=== PATIENT | male | born 1965 | race Caucasian/White ===

== ENCOUNTER 2021-09-04 08:19 | Observation (INO) ==
--- NOTE | 2021-08-08 16:30 | PAT Medication Instructions ---
Medication Instructions Date of Service August 08, 2021 Home Medications Medical Marijuana Card 1 dose UD PRN amlodipine 10 mg tablet 10 mg PO DAILY atorvastatin 40 mg tablet 40 mg PO QAM chlorthalidone 25 mg tablet 25 mg PO QAM cholecalciferol (vitamin D3) 125 mcg (5,000 unit) tablet (Vitamin D3) 125 mcg PO QAM gabapentin 300 mg capsule 300 mg PO TID glimepiride 2 mg tablet 2 mg PO QAM lisinopril 40 mg tablet 40 mg PO QAM ropinirole 1 mg tablet 1 mg PO HS Continue as directed amlodipine 10 mg tablet 10 mg PO DAILY STOP taking 24 hours before surgery Medical Marijuana Card 1 dose UD PRN DO NOT take the morning of surgery chlorthalidone 25 mg tablet 25 mg PO QAM cholecalciferol (vitamin D3) 125 mcg (5,000 unit) tablet (Vitamin D3) 125 mcg PO QAM glimepiride 2 mg tablet 2 mg PO QAM lisinopril 40 mg tablet 40 mg PO QAM Take morning of surgery With a small sip of water, OTHERWISE NOTHING TO EAT OR DRINK AFTER MIDNIGHT: atorvastatin 40 mg tablet 40 mg PO QAM gabapentin 300 mg capsule 300 mg PO TID Take evening before surgery gabapentin 300 mg capsule 300 mg PO TID ropinirole 1 mg tablet 1 mg PO HS Other Notes If you have any questions please call us at [phone] or [phone] or [phone] or [phone]
--- NOTE | 2021-08-15 11:39 | Anesthesiology Consultation ---
Date of Service August 15, 2021 Assessment & Plan (1) Encounter for pre-operative examination: - check BSG am DOS. - Outpatient joint pathway: Per surgeon and patient, plan for outpatient joint program. Case discussed with Dr. Canales who agreed patient is not appropriate outpatient joint candidate for multiple reasons even if had adequate, strong home support. Nery at surgeon's office made aware. - COVID screening: Per assessment on 08/15/2021: Travel screen negative, no known COVID-19 positive contacts or current COVID-19 related symptoms in past 2 weeks. Surgeon arranging preop COVID testing, scheduled 08/31/2021. Awaiting results. Chart Review Chart Review: Acceptable Risk for Surgery and Patient seen in Pre Admission Testing Teaching & Discussion Pre-Anesthesia Teaching/Discussion Notes: Instructed NPO after midnight before surgery, except medications with 15 cc of water. Medication instructions provided according to the PAT guidelines. History Surgery Operation Date: 09/04/21 07:00 Proposed Procedures p OP: Left Reverse Total Shoulder Arthroplasty - Zurdo Rainey DO Height/Weight Height: 6 ft 3 in Weight: 154.8 kg Allergies Allergy/AdvReac Type Severity Reaction Status Date / Time No Known Allergies Allergy Verified 08/07/21 13:09 Medications Home Medications Medication Instructions Recorded Confirmed Last Taken Medical Marijuana Card 1 dose UD PRN 08/07/21 08/07/21 Unknown amlodipine 10 mg tablet 10 mg PO DAILY 08/07/21 08/07/21 Unknown atorvastatin 40 mg tablet 40 mg PO QAM 08/07/21 08/07/21 Unknown chlorthalidone 25 mg tablet 25 mg PO QAM 08/07/21 08/07/21 Unknown cholecalciferol (vitamin D3) 125 125 mcg PO QAM 08/07/21 08/07/21 Unknown mcg (5,000 unit) tablet (Vitamin D3) gabapentin 300 mg capsule 300 mg PO TID 08/07/21 08/07/21 Unknown glimepiride 2 mg tablet 2 mg PO QAM 08/07/21 08/07/21 Unknown lisinopril 40 mg tablet 40 mg PO QAM 08/07/21 08/07/21 Unknown ropinirole 1 mg tablet 1 mg PO HS 08/07/21 08/07/21 Unknown Past Medical History Medical History (Updated 08/15/21 @ 15:22 by Sue Hart PA-C) Anxiety and depression Arthritis of spine Herniated disc High cholesterol History of colonic polyps BENIGN History of stroke 7 YR AGO...RESIDUAL: MILD LEFT SIDE WEAKNESS, MAINLY LEG HTN (hypertension) Lumbar herniated disc Neuropathy "FALL RISK" PER PT RLS (restless legs syndrome) Sleep apnea NO MACHINE USE FOR >1 YR Type 2 diabetes mellitus NIDDM Patient denies h/o seizures, heart attack, heart failure, blood clots or blood transfusions. Exercise / Class Metabolic Activity III < 4 Walking/Shop/Light housework (denies CP or SOB) Past Family History Family History Grandmother Family history of diabetes mellitus Grandfather Family history of diabetes mellitus Brother Family history of diabetes mellitus Past Surgical History Surgical History History of ankle surgery LEFT History of colonoscopy History of rotator cuff surgery R&L (LEFT ROTATOR CUFF SX OCTOBER 27 2020) History of total left knee replacement History of total right knee replacement Past Anesthesia History No Hx of Anesthesia Complications History of PONV No Hx of PONV and No Hx of Motion Sickness Social History Smoking Status: Current some day smoker Smoking cigarettes per day: "BLACK AND MILD" - SPORADIC, A COUPLE DAYS A MONTH/ADVISED NPO Do You Dip or Chew Tobacco: No Hx Alcohol Use: Yes alcohol intake frequency: other Alcohol Intake Frequency Comment: LIMITED , A COUPLE TIMES A YEAR substance use type: other Substance Use Type Other:: MEDICAL MARIJUANA CARD - INSTRUCTED TO BRING CARD DOS Review of Systems Patient denies chest pain, shortness of breath, dyspnea on exertion, reflux, fever, chills, cough, wheezing, or palpitations. Physical Exam Vital Signs Vitals BP 159/86 (states has not yet taken antihypertensives today) P 55 TEMP 98.5 SP02 98% on RA RESP 17 Physical Full cervical extension range of motion without pain TMD 3.5 finger breaths Mallampati Score 3 Dentition: intact, several missing teeth-upper left back and lower left back; denies chipped or loose teeth, caps/crowns, implants or bridges Lungs: normal respiratory effort. Clear throughout to auscultation, no adventit ious breath sounds Cardiac: regular rate and rhythm, no murmurs noted Carotid arteries: negative bruit bilat Lab Results Anesthesia Preop Results Results Anesthesia Widget: WBC 6.07 K/uL (4.8-10.8) 08/15/21 Hgb 15.5 g/dL (14.0-18.0) 08/15/21 Hct 44.6 % (42-52) 08/15/21 Plt 174 K/uL (130-400) 08/15/21 Na 140 mmol/L (136-145) 08/15/21 K 3.4 mmol/L (3.5-5.1) L 08/15/21 Cl 106 mmol/L (98-107) 08/15/21 CO2 29 mmol/L (21-32) 08/15/21 BUN 10 mg/dl (6-23) 08/15/21 Creat 0.84 mg/dl (0.6-1.4) 08/15/21 Glucose Level 81 mg/dl (70-99(Fasting)) 08/15/21 PT 10.2 Seconds (9.0-12.0) 08/15/21 PTT 25.9 Seconds (21.0-31.0) 08/15/21 INR 1.0 (0.9-1.1) 08/15/21 Blood Type A Positive 08/15/21 Antibody Screen NEGATIVE 08/15/21 Testing Electrocardiogram Date: 10/18/20 NSR, rate 66 bpm Chest X-Ray Date: 08/15/21 The cardiomediastinal and hilar silhouettes are within normal limits. Mild hyperinflation. There is no pneumothorax, pleural effusion, airspace consolidation or overt pulmonary edema. Degenerative changes of the shoulders and spine. IMPRESSION: No acute process.
[~2021-09-04 08:19] MED LIST: ACETAMINOPHEN 500 MG TAB PO SCH; BUPIVACAINE 0.5 % 5 MG/1 ML PF 10ML VIAL ONE; FAMOTIDINE 20 MG TAB PO SCH; GABAPENTIN 300 MG CAP PO SCH; Ketorolac (*for OR use only*) 30 MG, dexAMETHasone 4 MG, KETAMINE HCL (**OR use only) 1... INFIL SCH; LACTATED RINGER'S 1,000 ML IV SCH; LR 60ML/HR IV SCH; TRANEXAMIC ACID 1,000 MG **IV Intra-op IV SCH; TRANEXAMIC ACID 1,000 MG **IV Pre-op IV SCH; dexAMETHasone 4 MG TAB PO SCH
[2021-09-04] MEDS ORDERED: MIDAZOLAM HCL 1 MG/ML 2ML VIAL ONE (09:16)
[2021-09-04] MEDS ORDERED: fentaNYL citrate 100 MCG/2 ML VIAL ONE ×2 (09:16→11:12)
[2021-09-04] MEDS ORDERED: fentaNYL citrate 100 MCG/2 ML VIAL IV PRN (09:28)
[2021-09-04] MEDS ORDERED: KETOROLAC 30 MG/ML VIAL IV PRN (09:28)
[2021-09-04] MEDS ORDERED: ONDANSETRON INJ 2 MG/ML 2 ML VIAL IV PRN ×2 (09:28→13:17)
[2021-09-04] MEDS ORDERED: ATROPINE SULFATE 0.1 MG/ML 10ML SYR IV PRN (09:28)
[2021-09-04] MEDS ORDERED: LABETALOL HCL IV 5 MG/ML 20ML IV PRN (09:28)
--- NOTE | 2021-09-04 10:05 | History & Physical Bridge Note ---
Date of Service September 04, 2021 History & Physical Bridge Note I have examined the patient, reviewed the History & Physical and in the interval since the performance of the History & Physical I have noted the following changes of clinical significance: no changes noted
[2021-09-04] MEDS ORDERED: ORTHO JOINT ANESTHETIC ONE (10:22)
--- NOTE | 2021-09-04 12:00 | Operative Report ---
PG Post Operative Report Pre & Post Diagnosis Operation Date: 09/04/21 10:40 Pre-Op Diagnosis: Rotator Cuff Arthropathy of Left Shoulder with tendinopathy long head of the biceps tendon Post-Op Diagnosis: Rotator Cuff Arthropathy of Left Shoulder with tendinopathy long head of the biceps tendon I identified the patient and participated in the time-out.: Yes Procedure Operation Date: 09/04/21 10:40 Actual Procedures p Left Reverse Total Shoulder Arthroplasty(Left) with open biceps tenodesis as a distinct and separate procedure (modifier 59)- Zurdo Rainey DO Surgeon Zurdo Rainey DO Full Stack Engineer Zurdo Villanueva PAC Estimated Blood Loss 250 Findings Consistent with Post-Op Diagnosis Specimens Left humeral head Complications none Disposition Disposition: Recovery Room Indications Cory is a pleasant 56-year-old male who has been dealing with increasing left shoulder pain and weakness. He has a failed rotator cuff repair in the past. MRI showed an unrepairable rotator cuff tear. After discussions in the office, he elected proceed with a left reverse shoulder arthroplasty. Description of Procedure A CPT code modifier 59: The long head of the biceps tendon was enlarged and infl frieda consistent with tendinopathy. A tenodesis was opted. This was a separate and distinct portion of the procedure. For these reasons, a CPT code modifier 59 will be added to this case. Implants used: I used a [employer]omet Comprehensive reverse total shoulder arthroplasty system with a size 11 press fit micro humeral stem, a standard humeral tray and a standard humeral bearing, a 25 mm small augment baseplate with a 6.5 mm central screw and superior and inferior locking screws, and a size 40 mm eccentric glenosphere. Cory arrived at [facility] for the above procedure. He was seen in the preoperative holding area and the operative extremity was identified and signed. He was given a preoperative antibiotic, TXA, and an interscalene nerve block. He was taken back to the operating room, laid on table in supine position, and put under general anesthesia. He was then put into the beachchair position. The shoulder was then prepped and draped in sterile fashion. A timeout was done and the patient and the operative extremity was properly identified. A deltopectoral approach was used. Dissection was taken down through the fascia and the deltoid was retracted laterally and the conjoined tendon was retracted medially. The anterior shoulder was exposed. The biceps groove was opened up and the biceps tendon was examined extensively. The biceps tendon demonstrated enlargement and inflammatory changes consistent with longstanding inflammation in the context of osteoarthritis and cuff arthropathy. The long head of the biceps tendon was then tenodesed to the upper border of the pectoralis major. This was a separate and distinct portion of the procedure. The subscapularis was then directly released off the lesser tuberosity with a peel technique. The inferior capsule was released and the humeral head was dislocated. A canal finding reamer was sent down the center of the humeral canal. Sequential reaming up to a size 11 reamer was done. Off that reamer, a proximal humeral resection guide was placed. The proximal humerus was resected at 135 of inclination and 25 of retroversion. Osteophytes were then removed and the glenoid was exposed. Time was spent doing a complete capsular and labral release. The glenoid guide was then placed in the inferior aspect of the glenoid. A 3.2 mm Steinmann pin was then placed into the glenoid vault at 10 of inclination. The glenoid baseplate was then reamed. The final size 25 mm small augment baseplate was then impacted in the place. A 6.5 mm central screw was then placed followed by superior and inferior locking screws. A 40 mm eccentric glenosphere was then impacted into place. Surrounding soft tissues were then injected with 100 cc an orthopedic pain control cocktail. The proximal humerus was then exposed. Sequential broaching of the humerus up to a size 11 broach was done. Off that broach a standard humeral tray was trialed. The shoulder was then reduced, brought through a full range of motion, and felt to be stable. The shoulder was then dislocated and the broach was removed. The final size 11 micro press-fit humeral stem was then impacted into place. A standard humeral bearing was then snapped onto a standard humeral tray. The humeral tray was then impacted onto the humeral stem. The shoulder was once again reduced, brought through a full range of motion, and felt to be stable. The subscapularis was then tenodesed back to the lesser tuberosity with transosseous FiberWire sutures and side to side sutures with the arm in 45 of external rot ation. A dilute betadyne lavage was then done for 3 minutes. The joint was then irrigated with normal saline solution. Hemostasis was obtained. The interval was closed with 2-0 Vicryl suture. The skin was then closed with 2-0 Vicryl and she. A Silverlon dressing was placed and the arm was rested in a regular arm sling. He was then extubated and transferred to a hospital bed. He taken to the postanesthesia care unit in stable condition. He tolerated the procedure well. Zurdo Villanueva PA-C, was present for the entire procedure. He was critical for patient positioning, prepping, draping, retraction exposure, wound closure and application of sterile dressing. I attest to the content of the Intraoperative Record and any orders documented therein. Any exceptions are noted below.
[2021-09-04] MEDS ORDERED: LIDOCAINE 2% 2 ML VIAL/AMP(20MG/ML) INFIL ONE (12:50)
[2021-09-04] MEDS ORDERED: ONDANSETRON INJ 2 MG/ML 2 ML VIAL ONE (12:50)
[2021-09-04] MEDS ORDERED: PROPOFOL IV EMULSION 10 MG/ML 20 ML VIAL IV ONE ×3 (12:50)
[2021-09-04] MEDS ORDERED: DEXAMETHASONE SOD INJ 4 MG/ML VIAL ONE (12:50)
--- NOTE | 2021-09-04 13:04 | XRay Report ---
XR shoulder LT min 2V routine CLINICAL HISTORY: Post shoulder surgery COMPARISON STUDY: None. FINDINGS: 3 images of the left shoulder demonstrate a reverse total shoulder arthroplasty. The hardwa re is intact. No fracture or dislocation. Skin she are in place. Soft tissue gas within the left shoulder consistent with the recent postoperative change. IMPRESSION: Status post reverse left total shoulder arthroplasty. No evidence for hardware complicat ion. ACT 112: Negative or not required by law. Electronically signed by: Usman Krishnan M.D. 09/04/2021 1:03 PM
[2021-09-04] MEDS ORDERED: HYDROmorphone INJ 0.5 MG/0.5 ML SYR IV PRN (13:17)
[2021-09-04] MEDS ORDERED: PHARMACY GLYCEMIC MGMT CONSULT PRN (13:17)
[2021-09-04] MEDS ORDERED: NALOXONE HCL 0.4 MG/1 ML VIAL/CARP IV PRN (13:17)
[2021-09-04] MEDS ORDERED: bisacodyL 10 MG SUPP PR PRN (13:17)
[2021-09-04] MEDS ORDERED: MAGNESIUM HYDROXIDE SUSP 30 ML UDC PO PRN (13:17)
[2021-09-04] MEDS ORDERED: METOCLOPRAMIDE HCL INJ 5 MG/ML 2 ML VIAL IV PRN (13:17)
--- NOTE | 2021-09-04 13:40 | Anesthesiology Progress Note ---
Date of Service September 04, 2021 Anesthesia Post Procedure Vital Signs Vital Signs: Temp Pulse Pulse Pulse Resp BP Pulse Ox 09/04/21 13:10 36.7 C 59 L 18 138/82 93 09/04/21 12:55 36.4 C L 65 13 125/89 93 09/04/21 12:45 56 L 15 128/84 94 09/04/21 12:35 61 16 145/80 H 99 09/04/21 12:25 68 14 147/80 H 100 09/04/21 12:15 58 L 12 146/79 H 100 09/04/21 12:09 36.3 C L 72 10 L 165/106 H 99 09/04/21 09:05 36.8 C 58 L 20 179/97 H 98 Pain Intensity Left Shoulder: Pain Intensity: 2 Transfer of Care Handoff Completed per policy Notes Mental Status: alert / awake / arousable Patient Amnestic to Procedure: Yes Nausea / Vomiting: adequately controlled Pain: adequately controlled Airway Patency, RR, SpO2: stable & adequate BP & HR: stable & adequate Hydration State: stable & adequate Anesthetic Complications: no major complications apparent
[2021-09-04] MEDS ORDERED: DEXTROSE 50% 50 ML SYRINGE IV PRN (14:00)
[2021-09-04] MEDS ORDERED: GLUCOSE 10 TABS/TUBE PO PRN (14:00)
[2021-09-04] MEDS ORDERED: GLUCAGON FOR INJ 1 MG VIAL IM PRN (14:00)
[2021-09-04] MEDS ORDERED: CARBOHYDRATES FOR HYPOGLYCEMIA PO PRN (14:00)
[2021-09-04] MEDS ORDERED: GLUCOSE 40% GEL 15 GM TUBE PO PRN (14:00)
--- NOTE | 2021-09-04 14:02 | Pharmacy Report ---
Pharmacy Glycemic Short Note 2 - Date of Service September 04, 2021 - Glycemic Short BSG Results (Last 24 hours): 09/04/21 09/04/21 09:10 12:12 POC Glucose 133 H 147 H OUTPATIENT ANTIDIABETIC REGIMEN: * Glimepiride 2 mg qAM * A1c pending ASSESSMENT: * Pt admitted following left shoulder arthroplasty. * Pre/post BSGS 133-147 mg/dL, patient did receive 8 mg of dexamethasone PO and ?4 mg IV intraop * Will start novolog with parameters based on adjusted body weight, correction factor of 20 and carb ratio 6 (pt insulin naive) * Will add a dose of NPH if BSGs start to elevate with dinner * Overnight checks PLAN FOR INPATIENT GLYCEMIC CONTROL: * Hold outpatient oral diabetes medications * Basal insulin * NPH 0/20 x1 * Bolus insulin * NovoLog per scale ACHS or Q6hrs while NPO * Goal Range: Low 110 mg/dL - High 140 mg/dL * Correction Factor: 20 mg/dL/unit * Nutritional / Prandial insulin per carb ratio of 1 unit per 6 grams CHO consumed
[2021-09-04] MEDS: INSULIN ASPART PER UNIT SC SCH ×4 (15:21→23:45)
[2021-09-04] MEDS: GABAPENTIN 300 MG CAP PO SCH ×2 (15:50→20:32)
[2021-09-04] MEDS: SODIUM CHLORIDE 0.9% 1000ML 1,000 ML IV SCH (15:50)
[2021-09-04] MEDS: oxyCODONE HCL IR 5 MG TAB (IMMEDIATE RELEASE) PO PRN ×2 (15:57→20:32)
[2021-09-04] MEDS ORDERED: INSULIN HUMAN NPH SC ONE (16:30)
[2021-09-04] MEDS: ACETAMINOPHEN 500 MG TAB PO SCH (17:12)
[2021-09-04] MEDS: KETOROLAC 30 MG/ML VIAL IV SCH ×2 (17:13→23:33)
[2021-09-04] MEDS ORDERED: NovoLIN-N (NPH) PER UNIT CHARGE SQ ONE (17:30)
[2021-09-04] MEDS: ceFAZolin 2000MG 2,000 MG/15 ML SYR IV SCH (18:37)
[2021-09-04] MEDS: DOCUSATE SODIUM 100 MG CAP PO SCH (20:31)
[2021-09-04] MEDS ORDERED: SENNA 8.6 MG TAB PO SCH (21:00)
[2021-09-05] MEDS: SODIUM CHLORIDE 0.9% 1000ML 1,000 ML IV SCH (01:23)
[2021-09-05] MEDS: ceFAZolin 2000MG 2,000 MG/15 ML SYR IV SCH (03:07)
[2021-09-05] MEDS: INSULIN ASPART PER UNIT SC SCH ×2 (04:05→08:22)
[2021-09-05] MEDS: oxyCODONE HCL IR 5 MG TAB (IMMEDIATE RELEASE) PO PRN (04:53)
[2021-09-05] MEDS: ACETAMINOPHEN 500 MG TAB PO SCH (05:58)
[2021-09-05] MEDS: KETOROLAC 30 MG/ML VIAL IV SCH (05:58)
--- NOTE | 2021-09-05 06:25 | Orthopedic Progress Note ---
Date of Service September 05, 2021 Assessment & Plan (1) Status post reverse total replacement of left shoulder: Overall he is doing very well. Is not having much pain in the left shoulder. He will be seen by physical therapy today for ambulation and range of motion exercises. He can be discharged home later today. He will follow-up with orthopedics in 2 weeks. Mimi Morejon was seen and examined at bedside this morning. Overall he is doing well. He is not having any pain in the left shoulder. He had no acute events overnight. Review of Systems All systems reviewed & are unremarkable except as noted in HPI & below. Physical Exam On physical examination of the left shoulder, the dressing is clean and dry. He has active dorsiflexion of his left wrist. He is wearing his sling as instructed. Results & Data Results & Data Laboratory Results . Diagnostic Findings . PG Care Time/CCT Total # of Minutes Spent Total Time Spent with Patient: Total time spent is greater than 50% in coordination of care (as documented) at patient's floor/unit and/or counseling patient: Coding Level of Care Code 76451 Post Operative Follow-Up Diagnoses Status post reverse total replacement of left shoulder Z96.612
--- NOTE | 2021-09-05 06:26 | Discharge Summary ---
Date of Service September 05, 2021 Principal Diagnosis Same as "Discharge Diagnosis" noted below under Discharge Instructions. Discharge Exam On physical examination of the left shoulder, the dressing is clean and dry. He has active dorsiflexion of his left wrist. He is wearing his sling as instructed. Discharge Data Procedures Performed Operation Date: 09/04/21 10:40 Actual Procedures p Left Reverse Total Shoulder Arthroplasty(Left) - Zurdo Rainey DO Ordered Studies 09/04/21 05:00 US - OR guided needle placemen Routine Hospital Course (1) Status post reverse total replacement of left shoulder: On September 04, 2021 Jean-Pierre arrived at [facility] and underwent a left reverse shoulder replacement without complication. He had a general anesthetic and a left interscalene nerve block. Postoperatively he was placed in a sling and transferred to the general orthopedic floors. His hospital course was uneventful. On postop day #1 his vital signs were stable and his pain was well controlled. He was able to participate well with physical therapy doing ambulation and range of motion exercises. He was then discharged home. He will follow-up with orthopedics in 2 weeks. PG Care Time/CCT Total # of Minutes Spent Total Time Spent with Patient: Total time spent is greater than 50% in coordination of care (as documented) at patient's floor/unit and/or counseling patient: Discharge Plan Discharge Items Patient Disposition: Home - Home Health Services Reason For Visit: Degenerative Joint Disease Left Shoulder, Rotator Discharge Diagnosis: Left reverse shoulder replacement Activity: As commented below Non-emergency contact: Surgeon Call non-emergency contact if: your wound has increased redness and your wound has increased drainage Follow-up/Referrals: Barry Taylor DO [Primary Care Provider] - Diet: Regular Addtl Attending Provider Instructions: Activity and Therapy Recommendations: * If you are using [facility] then therapy will be provided at your home until they feel you have accomplished all of your goals. * If you are using [facility] then Physical Therapy will be provided until they feel you are ready to start Outpatient Physical Therapy. * If you are not using home therapy then Outpatient Physical Therapy should start about 3-5 days from your day of surgery. Therapy will last about 8-12 weeks * Wear your sling for 3 weeks, unless otherwise instructed. You may remove your sling to shower and to dress, but otherwise, you should be in your sling at all times, including while sleeping * The shoulder replacement is very stable and you can use your hand while in the sling * You were shown a series of exercises in the hospital. Do these exercises daily including the exercises you were shown in physical therapy. Medications: * Narcotic You will likely be sent home from the hospital with a prescription for the narcotic pain medication that worked best throughout your stay. * Other medications may be prescribed for specific circumstances. If you have any questions, please call the office at . * Resume previous home medications unless otherwise instructed Dressing Care: Leave the Silverlon dressing in place for 7 days. After 7 days you may remove the dressing. If the incision is not draining then you may leave the she open to air. If there is a little bit of drainage or if the she are getting stuck on your clothing then cover the incision with a dry dressing. The she will be removed at your 2 week follow-up appointment. Showering: You may shower with the Silverlon dressing in place. Do not let the shower spray hit the dressing directly. Pat the Silverlon dressing dry. If the dressing becomes wet underneath, then simply remove the dressing. Keep the incision dry until you are 7 days out from the day of surgery. After 7 days you may remove the Silverlon dressing and shower with the she exposed. Let soapy water run over the she and pat them dry. Do not scrub or soak the incision. Things To Watch For: * Drainage from the incision site that occurs more than one week after your surgery. * Increased redness at the incision site. * Fever above 102 degrees Fahrenheit. * Unusual chest pain or shortness of breath. * Call [facility] at with any of the above problems Follow-Up Visit: Follow-up with Dr. Rainey's PA (Zurdo Villanueva) 2-3 weeks after your day of surgery. He will remove your she and answer any questions. If you have any additional questions or concerns, Dr Rainey is usually in the office at the same time and will be available An appointment was probably scheduled when you signed-up for surgery in the office. If you have any questions call More detailed instructions as well as Frequently Asked Questions were provided in a folder by our office when you signed-up for surgery. Please review these instructions when you get home. If you have any further questions or concerns, please feel free to call the office at [phone] Pending Studies at Discharge: No Stand-Alone Forms: My [facility] Medications and DC Order Prescriptions: Continued oxycodone-acetaminophen [Percocet] 5-325 mg tablet 1 tab PO Q6H PRN (Reason: pain) Qty: 30 RF: 0 atorvastatin 40 mg Tablet 40 mg PO QAM RF: 0 chlorthalidone 25 mg Tablet 25 mg PO QAM RF: 0 glimepiride 2 mg Tablet 2 mg PO QAM RF: 0 amlodipine 10 mg Tablet 10 mg PO DAILY RF: 0 gabapentin 300 mg Capsule 300 mg PO TID RF: 0 lisinopril 40 mg Tablet 40 mg PO QAM RF: 0 cholecalciferol (vitamin D3) [Vitamin D3] 125 mcg (5,000 unit) Tablet 125 mcg PO QAM RF: 0 Medical Marijuana Card 1 dose UD PRN (Reason: Anxiety) RF: 0 Discharge Orders: Discharge Order (Routine); Ordered 09/05/21 Ordered By: Zurdo Rainey Admission Data Admit Date/Time: 09/04/21 13:12 Attending Provider: Zurdo Rainey Admit Provider: Zurdo Rainey Primary Care Provider: Barry Taylor
[2021-09-05] MEDS: DOCUSATE SODIUM 100 MG CAP PO SCH (08:11)
[2021-09-05] MEDS: GABAPENTIN 300 MG CAP PO SCH (08:12)
[2021-09-05 08:37] LABS: Estimated Average Glucose 114 mg/dl; Hemoglobin A1C 5.6 % (4.5-5.6)
[2021-09-05] MEDS ORDERED: MULTIVITAMIN TAB PO SCH (09:00)
[2021-09-05] MEDS ORDERED: lisinopril 40 MG TAB PO SCH (09:00)
[2021-09-05] MEDS ORDERED: CHLORTHALIDONE 25 MG TAB PO SCH (09:00)
[2021-09-05] MEDS ORDERED: ATORVASTATIN 40 MG TAB PO SCH (09:00)
[2021-09-05] MEDS ORDERED: amLODIPine BESYLATE 5 MG TAB PO SCH (09:00)
== END 2021-09-05 10:07 | disposition home health service (06) ==
LOC: 3E 08:19 → ASU 08:19

== ENCOUNTER 2024-06-01 07:52 | Observation (INO) ==
--- NOTE | 2024-04-27 11:51 | PAT Medication Instructions ---
Medication Instructions Date of Service April 27, 2024 Home Medications amlodipine 10 mg tablet 10 mg PO QAM atorvastatin 40 mg tablet 40 mg PO HS cholecalciferol (vitamin D3) 125 mcg (5,000 unit) tablet (Vitamin D3) 125 mcg PO QAM glimepiride 2 mg tablet 2 mg PO QAM lisinopril 40 mg tablet 40 mg PO QAM cyclobenzaprine 10 mg tablet 10 - 20 mg PO UD doxycycline monohydrate 100 mg tablet 100 mg PO QAM eyes furosemide 40 mg tablet 40 mg PO QAM metoprolol succinate 25 mg tablet,extended release 24 hr 25 mg PO QAM pregabalin 100 mg capsule 100 - 200 mg PO UD tramadol 100 mg tablet 100 mg PO UD PRN Pain DO NOT take the morning of surgery cholecalciferol (vitamin D3) 125 mcg (5,000 unit) tablet (Vitamin D3) 125 mcg PO QAM glimepiride 2 mg tablet 2 mg PO QAM lisinopril 40 mg tablet 40 mg PO QAM furosemide 40 mg tablet 40 mg PO QAM Take morning of surgery With a small sip of water, OTHERWISE NOTHING TO EAT OR DRINK AFTER MIDNIGHT: amlodipine 10 mg tablet 10 mg PO QAM cyclobenzaprine 10 mg tablet 10 - 20 mg PO UD doxycycline monohydrate 100 mg tablet 100 mg PO QAM eyes metoprolol succinate 25 mg tablet,extended release 24 hr 25 mg PO QAM pregabalin 100 mg capsule 100 - 200 mg PO UD tramadol 100 mg tablet 100 mg PO UD PRN Pain (if needed) Take evening before surgery atorvastatin 40 mg tablet 40 mg PO HS cyclobenzaprine 10 mg tablet 10 - 20 mg PO UD pregabalin 100 mg capsule 100 - 200 mg PO UD tramadol 100 mg tablet 100 mg PO UD PRN Pain (if needed) Other Notes If you have any questions please call us at [phone] or [phone] or [phone] or [phone]
--- NOTE | 2024-05-06 11:11 | Anesthesiology Consultation ---
Date of Service May 06, 2024 Assessment & Plan (1) Encounter for pre-operative examination: Chart Review Chart Review: Acceptable Risk for Surgery and Patient seen in Pre Admission Testing - Check BSG AM DOS - Patient is not an OPJ candidate- no support and transportation issues- patient would like to stay overnight. Surgeon's office informed Per PAT appt on 05/06/24, no recent illness/disease exposures, illness related symptoms, or recent illness/disease positive tests. Will leave to surgeon's discretion if preop Covid testing needed Left Reverse TSA 09/04/21= Done under [facility] with LMA #5. Atraumatic Teaching & Discussion Pre-Anesthesia Teaching/Discussion Notes: Instructed NPO after midnight before surgery,except medications with 15 cc of water. Medication instructions provided according to the PAT guidelines. History Surgery Operation Date: 06/01/24 08:00 Proposed Procedures p Right Total Shoulder Arthroplasty Reverse - Zurdo Rainey DO Height/Weight Height: 6 ft 2 in Weight: 152 kg Allergies Allergy/AdvReac Type Severity Reaction Status Date / Time cyclosporine [From Restasis] Allergy vision Verified 04/24/24 09:46 problems Medications Home Medications Medication Instructions Recorded Confirmed Last Taken amlodipine 10 mg tablet 10 mg PO QAM 08/07/21 04/24/24 09/03/21 09:00 atorvastatin 40 mg tablet 40 mg PO HS 08/07/21 04/24/24 09/03/21 09:00 cholecalciferol (vitamin D3) 125 125 mcg PO QAM 08/07/21 04/24/24 09/03/21 09:00 mcg (5,000 unit) tablet (Vitamin D3) glimepiride 2 mg tablet 2 mg PO QAM 08/07/21 04/24/24 09/03/21 09:00 lisinopril 40 mg tablet 40 mg PO QAM 08/07/21 04/24/24 09/03/21 09:00 cyclobenzaprine 10 mg tablet 10 - 20 mg PO UD 04/24/24 04/24/24 Unknown doxycycline monohydrate 100 mg 100 mg PO QAM eyes 04/24/24 04/24/24 Unknown tablet furosemide 40 mg tablet 40 mg PO QAM 04/24/24 04/24/24 Unknown metoprolol succinate 25 mg 25 mg PO QAM 04/24/24 04/24/24 Unknown tablet,extended release 24 hr pregabalin 100 mg capsule 100 - 200 mg PO UD 04/24/24 04/24/24 Unknown tramadol 100 mg tablet 100 mg PO UD PRN Pain 04/24/24 04/24/24 Unknown Past Medical History Medical History Anxiety and depression hx, no recent meds or issues Arthritis of spine Foot drop, left wears brace PRN High cholesterol History of stroke ~2014, residual left leg weakness HTN (hypertension) Hx of migraines Lumbar herniated disc Neuropathy fall risk per pt. RLS (restless legs syndrome) hx, no recent issues Sleep apnea hx, "no recent issues, seems to have gone away" no device (intolerant) Tendon tear right foot, will be getting surgery in near future (May 2024) Type 2 diabetes mellitus NIDDM- stable Exercise / Class Metabolic Activity III < 4 Walking/Shop/Light housework (no chest pain or SOB with flat surface ambulation ) Past Family History Family History Grandmother Family history of diabetes mellitus Grandfather Family history of diabetes mellitus Brother Family history of diabetes mellitus Past Surgical History Surgical History History of ankle surgery left tendon repair, 38 years ago History of colonoscopy History of rotator cuff surgery right and left History of total left knee replacement History of total right knee replacement S/P epidural steroid injection 04/17/24, [facility] Status post reverse total arthroplasty of left shoulder 2021 Past Anesthesia History No Hx of Anesthesia Complications and No Family Hx of Anesthesia Complications History of PONV No Hx of PONV and No Hx of Motion Sickness Social History Smoking Status: Former smoker Smoking cigarettes per day: Pipe tobacco in cigarrette - 1 cig/2-3 days Do You Dip or Chew Tobacco: No Smoking End Date: Feb 2024 Hx Alcohol Use: Yes alcohol intake frequency: holidays/special occasions only Hx Substance Use: Yes substance use type: former substance user and marijuana Last Used Substance Other:: used to have medical card, no longer has, last use september or october 2023 Review of Systems Patient denies chest pain, shortness of breath, dyspnea on exertion, reflux, cough, wheezing, palpitations. No hx of seizures, [place]. No hx of blood clots or blood transfusions Physical Exam Vital Signs VITALS BP 159/87 P 72 TEMP 97.8 SP02 98% RESP 16 Constitutional no acute distress ENMT Mouth: no TMJ clicking Thyromental Distance: > or= 3.5 Finger Breadths (3.5) Mallampati Class: I Temporary cap to molar - did instruct patient to discuss any upcoming dental work with surgeon's office Neck neck extension not limited Respiratory normal respiratory effort; no respiratory distress Auscultation: lungs clear to auscultation bilaterally; no wheezes Cardiovascular Rate/Rhythm: regular rate and regular rhythm Heart Sounds: no murmur Vessels: no carotid bruit Musculoskeletal Spine: no pain with cervical ROM Extremities: extremities normal to inspection Psychiatric Orientation: alert Lab Results Anesthesia Preop Results Results Anesthesia Widget: WBC 4.43 K/ul (4.8-10.8) L 05/06/24 Hgb 15.3 g/dl (14.0-18.0) 05/06/24 Hct 43.7 % (42.0-52.0) 05/06/24 Plt 128 K/uL (130-400) L 05/06/24 Na 140 mmol/L (136-145) 05/06/24 K 3.4 mmol/L (3.5-5.1) L 05/06/24 Cl 105 mmol/L (98-107) 05/06/24 CO2 31 mmol/L (21-32) 05/06/24 BUN 10 mg/dl (6-23) 05/06/24 Creat 0.84 mg/dl (0.6-1.4) 05/06/24 Glucose Level 70 mg/dl (70-99(Fasting)) 05/06/24 PT 10.0 Seconds (9.0-12.0) 05/06/24 PTT 25 Seconds (21-31) 05/06/24 INR 0.9 (0.9-1.1) 05/06/24 HA1c 5.5 % (4.5-5.6) 05/06/24 Blood Type A Positive 05/06/24 Antibody Screen NEGATIVE 05/06/24 Testing Electrocardiogram Date: 05/06/24 Findings: + NSR @ (71bpm) Normal EKG per cardio Chest X-Ray Date: 05/06/24 Findings: + NAD
[~2024-06-01 07:52] MED LIST changes: -ACETAMINOPHEN 500 MG TAB PO SCH; -FAMOTIDINE 20 MG TAB PO SCH; -GABAPENTIN 300 MG CAP PO SCH; -Ketorolac (*for OR use only*) 30 MG, dexAMETHasone 4 MG, KETAMINE HCL (**OR use only) 1... INFIL SCH; -LACTATED RINGER'S 1,000 ML IV SCH; -LR 60ML/HR IV SCH; +SODIUM CHLORIDE 0.9% PF INJ 10 ML VIAL ONE; -TRANEXAMIC ACID 1,000 MG **IV Intra-op IV SCH; -TRANEXAMIC ACID 1,000 MG **IV Pre-op IV SCH; +ceFAZolin 2000MG 2,000 MG/15 ML SYR IV SCH; -dexAMETHasone 4 MG TAB PO SCH
[2024-06-01] MEDS: FAMOTIDINE 20 MG TAB PO SCH (08:43)
[2024-06-01] MEDS: GABAPENTIN 600 MG DOSE PO SCH (08:43)
[2024-06-01] MEDS: ACETAMINOPHEN 500 MG TAB PO SCH ×2 (08:43→14:31)
[2024-06-01] MEDS: dexAMETHasone**PF** 10 MG/ML VIAL IV SCH (08:44)
[2024-06-01] MEDS: LR 60ML/HR IV SCH (08:44)
[2024-06-01] MEDS ORDERED: fentaNYL citrate PF 100 MCG/2 ML VIAL IV PRN (09:40)
[2024-06-01] MEDS ORDERED: LABETALOL HCL IV 5 MG/ML 20ML IV PRN (09:40)
[2024-06-01] MEDS ORDERED: ONDANSETRON INJ 2 MG/ML 2 ML VIAL IV PRN ×2 (09:40→14:10)
[2024-06-01] MEDS ORDERED: PROMETHAZINE HCL 6.25 MG in SODIUM CHLORIDE 0.9% 50 ML IV PRN (09:40)
[2024-06-01] MEDS ORDERED: ATROPINE SULFATE 0.1 MG/ML 10ML SYR IV PRN (09:40)
[2024-06-01] MEDS ORDERED: KETOROLAC 30 MG/ML VIAL IV PRN (09:40)
[2024-06-01] MEDS ORDERED: MIDAZOLAM HCL 1 MG/ML 2ML VIAL ONE (09:41)
[2024-06-01] MEDS ORDERED: ROCURONIUM BROMIDE 10 MG/ML 5 ML VIAL IV ONE (09:41)
[2024-06-01] MEDS ORDERED: LIDOCAINE 2% 2 ML VIAL/AMP(20MG/ML) INFIL ONE (09:41)
[2024-06-01] MEDS ORDERED: PROPOFOL IV EMULSION 10 MG/ML 20 ML VIAL IV ONE (09:41)
[2024-06-01] MEDS ORDERED: fentaNYL citrate PF 100 MCG/2 ML VIAL ONE ×2 (09:41→12:14)
[2024-06-01] MEDS: TRANEXAMIC ACID 1,000 MG **IV Pre-op IV SCH (09:56)
--- NOTE | 2024-06-01 10:07 | History & Physical Bridge Note ---
Date of Service June 01, 2024 History & Physical Bridge Note I have examined the patient, reviewed the History & Physical and in the interval since the performance of the History & Physical I have noted the following changes of clinical significance: no changes noted
[2024-06-01] MEDS: ceFAZolin 3000MG 3,000 MG/72.5 ML BAG IV SCH (10:10)
[2024-06-01] MEDS ORDERED: PHENYLEPHRINE 100MCG/ML 5ML SYR ONE (10:46)
[2024-06-01] MEDS ORDERED: LARYING-O-JET KIT (LTA) ONE (10:46)
[2024-06-01] MEDS ORDERED: SODIUM CHLORIDE 0.9% PF INJ 10 ML VIAL ONE (10:47)
[2024-06-01] MEDS ORDERED: ePHEDrine sulfate 50 MG/ML AMP ONE (10:47)
[2024-06-01] MEDS ORDERED: ONDANSETRON INJ 2 MG/ML 2 ML VIAL ONE (10:47)
[2024-06-01] MEDS: ROPIV 0.5% 246mg, Ketorolac 30mg, EPINEPHrine 0.5mg in NSS INFIL SCH (10:53)
[2024-06-01] MEDS: ORTHO JOINT ANESTHETIC ONE (10:56)
[2024-06-01] MEDS: TRANEXAMIC ACID 1,000 MG **IV Intra-op IV SCH (12:40)
--- NOTE | 2024-06-01 12:53 | Operative Report ---
PG Post Operative Report Pre & Post Diagnosis Operation Date: 06/01/24 10:00 Pre-Op Diagnosis: Rotator Cuff Arthropathy Right Shoulder with tendinopathy long head of the biceps tendon Post-Op Diagnosis: Rotator Cuff Arthropathy Right Shoulder with tendinopathy long head of the biceps tendon I identified the patient and participated in the time-out.: Yes Procedure Operation Date: 06/01/24 10:00 Actual Procedures p Right Reverse Total Shoulder Arthroplasty(Right) with open biceps tenodesis as a distinct and separate procedure (modifier 59)- Zurdo Rainey DO Surgeon Zurdo Rainey DO Trains Dispatcher Supervisor Desmond Adhikari PA-C Estimated Blood Loss 250 Findings Consistent with Post-Op Diagnosis Specimens Right humeral head Description of Procedure A CPT code modifier 59: The long head of the biceps tendon was enlarged and inflamed consistent with tendinopathy. A tenodesis was opted. This was a separate and distinct portion of the procedure. For these reasons, a CPT code modifier 59 will be added to this case. Implants used: I used a [employer] Comprehensive reverse total shoulder arthroplasty system with a size 11 press fit micro humeral stem, a standard humeral tray and a standard humeral bearing, a 25 mm small augment baseplate with 4 peripheral locking screws, and a size 40 mm eccentric glenosphere. Cory arrived at [facility] for the above procedure. He was seen in the preoperative holding area and the operative extremity was identified and signed. He was given a preoperative antibiotic, TXA, and an interscalene nerve block. He was taken back to the operating room, laid on table in supine position, and put under general anesthesia. He was then put into the beachchair position. The shoulder was then prepped and draped in sterile fashion. A timeout was done and the patient and the operative extremity was properly identified. A deltopectoral approach was used. Dissection was taken down through the fascia and the deltoid was retracted laterally and the conjoined tendon was retracted medially. The anterior shoulder was exposed. The biceps groove was opened up and the biceps tendon was examined extensively. The biceps tendon demonstrated enlargement and inflammatory changes consistent with longstanding inflammation in the context of osteoarthritis and cuff arthropathy. The long head of the biceps tendon was then tenodesed to the upper border of the pectoralis major. This was a separate and distinct portion of the procedure. The subscapularis was then directly released off the lesser tuberosity with a peel technique. The inferior capsule was released and the humeral head was dislocated. A canal finding reamer was sent down the center of the humeral canal. Sequential reaming up to a size 11 reamer was done. Off that reamer, a proximal humeral resection guide was placed. The proximal humerus was resected at 135 of inclination and 25 of retroversion. Osteophytes were then removed and the glenoid was exposed. Time was spent doing a complete capsular and labral release. The glenoid guide was then placed in the inferior aspect of the glenoid. A 3.2 mm Steinmann pin was then placed into the glenoid vault at 10 of inclination. The glenoid baseplate was then reamed. The final size 25 mm small augment baseplate was then impacted in the place. A 6.5 mm central screw was initially placed. Unfortunately, the head of the screw stripped. While attempting to remove it within the extraction set, the head of the screw broke. This was fortunate as I was still able to place the baseplate and 4 very healthy peripheral locking screws. 4 peripheral locking screws were then placed.. A 40 mm eccentric glenosphere was then impacted into place. Surrounding soft tissues were then injected with 100 cc an orthopedic pain control cocktail. The proximal humerus was then exposed. Sequential broaching of the humerus up to a size 11 broach was done. Off that broach a standard humeral tray was trialed. The shoulder was then reduced, brought through a full range of motion, and felt to be stable. The shoulder was then dislocated and the broach was removed. The final size 11 micro press-fit humeral stem was then impacted into place. A standard humeral bearing was then snapped onto a standard humeral tray. The humeral tray was then impacted onto the humeral stem. The shoulder was once again reduced, brought through a full range of motion, and felt to be stable. The subscapularis was then tenodesed back to the lesser tuberosity with transosseous FiberWire sutures and side to side sutures with the arm in 45 of external rotation. A dilute betadyne lavage was then done for 3 minutes. The joint was then irrigated with normal saline solution. Hemostasis was obtained. The interval was closed with 2-0 Vicryl suture. The skin was then closed with 2-0 Vicryl and she. A Silverlon dressing was placed and the arm was rested in a regular arm sling. He was then extubated and transferred to a hospital bed. He taken to the postanesthesia care unit in stable condition. He tolerated the procedure well. Desmond Adhikari PA-C, was present for the entire procedure. He was critical for patient positioning, prepping, draping, retraction exposure, wound closure and application of sterile dressing. I attest to the content of the Intraoperative Record and any orders documented therein. Any exceptions are noted below.
[2024-06-01] MEDS ORDERED: GLYCOPYRROLATE 0.2 MG/ML VIAL ONE (12:54)
[2024-06-01] MEDS ORDERED: NEOSTIGMINE METHYLSULFATE 1 MG/ML 10ML VIAL ONE (12:55)
--- NOTE | 2024-06-01 13:49 | Anesthesiology Progress Note ---
Date of Service June 01, 2024 Anesthesia Post Procedure Vital Signs Vital Signs: Temp Pulse Pulse Resp BP Pulse Ox O2 Del Method 06/01/24 13:35 36.4 C L 61 17 118/69 98 Nasal Cannula 06/01/24 13:25 62 17 148/71 H 95 Nasal Cannula 06/01/24 13:15 36.3 C L 63 17 136/7 L 95 Room Air 06/01/24 08:20 36.8 C 68 20 160/94 H 99 Room Air O2 Flow Rate 06/01/24 13:35 2 06/01/24 13:25 2 06/01/24 13:15 06/01/24 08:20 Transfer of Care Handoff Completed per policy Notes Mental Status: alert / awake / arousable Patient Amnestic to Procedure: Yes Nausea / Vomiting: adequately controlled Pain: adequately controlled Airway Patency, RR, SpO2: stable & adequate BP & HR: stable & adequate Hydration State: stable & adequate Anesthetic Complications: no major complications apparent
--- NOTE | 2024-06-01 13:57 | XRay Report ---
XR shoulder RT min 2V routine HISTORY: 59 years-old Male Post shoulder surgery right shoulder arthroplasty COMPARISON: MRI 01/21/2024 TECHNIQUE: 2 views of the right shoulder FINDINGS: Reverse right shoulder arthroplasty demonstrates satisfactory alignment. Overlying skin she are n oted along with expected postoperative soft tissue swelling and deep tissue air. Mild osteoarthritis of the AC joint. No acute fracture, dislocation or unexpected opaque foreign body. IMPRESSION: Right shoulder arthroplasty with expected postoperative changes. ACT 112: Negative or not required by law. The above report was generated using voice recognition software. It may contain grammatical, syntax o r spelling errors. Electronically signed by: Berlin Couch M.D. 06/01/2024 1:56 PM
[2024-06-01] MEDS ORDERED: bisacodyL 10 MG SUPP PR PRN (14:10)
[2024-06-01] MEDS ORDERED: HYDROmorphone INJ 0.5 MG/0.5 ML SYR IV PRN (14:10)
[2024-06-01] MEDS ORDERED: NALOXONE HCL 0.4 MG/1 ML VIAL/CARP IV PRN (14:10)
[2024-06-01] MEDS ORDERED: MAGNESIUM HYDROXIDE SUSP 30 ML UDC PO PRN (14:10)
[2024-06-01] MEDS ORDERED: METOCLOPRAMIDE HCL INJ 5 MG/ML 2 ML VIAL IV PRN (14:10)
[2024-06-01] MEDS: BUPIVACAINE LIPOSOME 1.3% 133 MG/10 ML VIAL ONE (14:18)
[2024-06-01] MEDS: KETOROLAC TROMETHAMINE 15 MG/ML VIAL IV SCH (14:32)
[2024-06-01] MEDS: oxyCODONE HCL IR 5 MG TAB (IMMEDIATE RELEASE) PO PRN (17:56)
[2024-06-01] MEDS: ceFAZolin 2000MG 2,000 MG/15 ML SYR IV SCH (18:02)
[2024-06-01] MEDS: ATORVASTATIN 40 MG TAB PO SCH (20:34)
[2024-06-01] MEDS: SENNA 8.6 MG TAB PO SCH (20:34)
[2024-06-01] MEDS: DOCUSATE SODIUM 100 MG CAP PO SCH (20:34)
[2024-06-01] MEDS: PREGABALIN 100 MG CAP PO SCH (20:34)
[2024-06-02 07:52] VITALS: BP 144/87; PULSE 73; RESP 16; TEMP 97.9; O2SAT 96
[2024-06-02] MEDS: amLODIPine BESYLATE 5 MG TAB PO SCH (08:16)
[2024-06-02] MEDS: MULTIVITAMIN TAB PO SCH (08:16)
[2024-06-02] MEDS: PREGABALIN 100 MG CAP PO SCH (08:17)
[2024-06-02] MEDS: lisinopril 40 MG TAB PO SCH (08:17)
[2024-06-02] MEDS: FUROSEMIDE 40 MG TAB PO SCH (08:17)
[2024-06-02] MEDS: GLIMEPIRIDE 2 MG TAB PO SCH (08:17)
[2024-06-02] MEDS: METOPROLOL SUCC 25MG EXT REL TAB PO SCH (08:18)
[2024-06-02] MEDS: dexAMETHasone 4 MG TAB PO SCH (08:22)
--- NOTE | 2024-06-02 12:43 | Orthopedic Progress Note ---
Date of Service June 02, 2024 Assessment & Plan (1) Status post reverse total replacement of right shoulder: Assessment: Status post right reverse total shoulder arthroplasty. Plan: Overall, he is doing quite well today with good pain control the right shoulder. He will work with physical therapy later this morning to work on range of motion exercises. He can be discharged home later this morning pending formal physical therapy evaluation recommendation. His dressings will remain in place for 7 days. His prescriptions were sent to his pharmacy prior to surgery. He currently has them and understands directions of how to take them. He will follow-up with orthopedics in 2 weeks for continued postoperative management or sooner if needed. He verbalized understanding and agrees with this plan. Subjective . Jean-Pierre was seen this morning resting comfortably in no apparent distress. He is in his shoulder sling as directed. He notes he has good pain control to the right shoulder. He has been up and ambulating without any significant issues. He has yet to be seen by physical therapy this morning. He denies any concerns with surgical incision site. He denies any active bleeding, discharge, or signs of infection. He denies any other concerns today. Review of Systems All systems reviewed & are unremarkable except as noted in HPI & below. Physical Exam . On physical examination of the right upper extremity, his dressing is clean, dry, intact with no signs of active bleeding, discharge, or signs of infection. His arm is currently in a sling. He has active range of motion at the elbow, wrist, all 5 digits. + radial pulse. Less than 2-second capillary refill. Normal sensation. Neurovascular intact. Results & Data Results & Data Laboratory Results . Diagnostic Findings . Shoulder X-Ray 06/01/24 13:16 XR shoulder RT min 2V routine HISTORY: 59 years-old Male Post shoulder surgery right shoulder arthroplasty COMPARISON: MRI 01/21/2024 TECHNIQUE: 2 views of the right shoulder FINDINGS: Reverse right shoulder arthroplasty demonstrates satisfactory alignment. Overlying skin she are noted along with expected postoperative soft tissue swelling and deep tissue air. Mild osteoarthritis of the AC joint. No acute fracture, dislocation or unexpected opaque foreign body. IMPRESSION: Right shoulder arthroplasty with expected postoperative changes. ACT 112: Negative or not required by law. The above report was generated using voice recognition software. It may contain grammatical, syntax or spelling errors. Electronically signed by: Berlin Couch M.D. 06/01/2024 1:56 PM PG Care Time/CCT Total # of Minutes Spent Total Time Spent with Patient: Total time spent is greater than 50% in coordination of care (as documented) at patient's floor/unit and/or counseling patient: Coding Level of Care Code 70801 Post Operative Follow-Up Diagnoses Status post reverse total replacement of right shoulder Z96.611
--- NOTE | 2024-06-02 12:44 | Discharge Summary ---
Date of Service June 02, 2024 Principal Diagnosis Same as "Discharge Diagnosis" noted below under Discharge Instructions. Discharge Exam . On physical examination of the right upper extremity, his dressing is clean, dry, intact with no signs of active bleeding, discharge, or signs of infection. His arm is currently in a sling. He has active range of motion at the elbow, wrist, all 5 digits. + radial pulse. Less than 2-second capillary refill. Nor mal sensation. Neurovascular intact. Discharge Data Procedures Performed Operation Date: 06/01/24 10:00 Actual Procedures p Right Reverse Total Shoulder Arthroplasty(Right) - Zurdo Rainey DO Ordered Studies 06/01/24 05:00 US - OR guided needle placemen Routine Hospital Course (1) Status post reverse total replacement of right shoulder: On June 01, 2024 Preeti arrived at [facility] and underwent a right reverse total shoulder arthroplasty performed by Dr. Rainey with no complications. He had a general anesthetic. Postoperatively, he was transferred to the PACU for immediate postoperative management then transferred to the general orthopedic floor in stable condition. His hospital course was uneventful. On postoperative day #1, his vital signs are stable and his pain was well-controlled. He participated well with physical therapy working on range of motion exercises. He was then discharged home in stable condition. He will follow-up in 2 weeks with orthopedics for continued postoperative management or sooner if needed. PG Care Time/CCT Total # of Minutes Spent Total Time Spent with Patient: Total time spent is greater than 50% in coordination of care (as documented) at patient's floor/unit and/or counseling patient: Discharge Plan Discharge Items Patient Disposition: Home - Home Health Services Reason For Visit: Right Shoulder Arthritis Discharge Diagnosis: Same Activity: Per Instructions section Non-emergency contact: Surgeon Call non-emergency contact if: your temperature is above 101.5, your wound has increased redness, your wound has increased drainage and your wound pain has increased Follow-up/Referrals: Barry Taylor DO [Primary Care Provider] - Diet: Regular Addtl Attending Provider Instructions: Activity and Therapy Recommendations: * If you are using [facility] then therapy will be provided at your home until they feel you have accomplished all of your goals. * If you are using [facility] then Physical Therapy will be provided until they feel you are ready to start Outpatient Physical Therapy. * If you are not using home therapy then Outpatient Physical Therapy should start about 3-5 days from your day of surgery. Therapy will last about 8-12 weeks * Wear your sling for 3 weeks, unless otherwise instructed. You may remove your sling to shower and to dress, but otherwise, you should be in your sling at all times, including while sleeping * The shoulder replacement is very stable and you can use your hand while in the sling * You were shown a series of exercises in the hospital. Do these exercises daily including the exercises you were shown in physical therapy. Medications: * Narcotic You will likely be sent home from the hospital with a prescription for the narcotic pain medication that worked best throughout your stay. * Cefadroxil -take the antibiotic twice a day for 10 days to help prevent infection. * Other medications may be prescribed for specific circumstances. If you have any questions, please call the office at . * Resume previous home medications unless otherwise instructed Dressing Care: Leave the Silverlon dressing in place for 7 days. After 7 days you may remove the dressing. If the incision is not draining then you may leave the she open to air. If there is a little bit of drainage or if the she are getting stuck on your clothing then cover the incision with a dry dressing. The she will be removed at your 2 week follow-up appointment. Showering: You may shower with the Silverlon dressing in place. Do not let the shower spray hit the dressing directly. Pat the Silverlon dressing dry. If the dressing becomes wet underneath, then simply remove the dressing. Keep the incision dry until you are 7 days out from the day of surgery. After 7 days you may remove the Silverlon dressing and shower with the she exposed. Let soapy water run over the she and pat them dry. Do not scrub or soak the incision. Diet: You may resume your previous diet. Things To Watch For: * Drainage from the incision site that occurs more than one week after your surgery. * Increased redness at the incision site. * Fever above 102 degrees Fahrenheit. * Unusual chest pain or shortness of breath. * Call [facility] at with any of the above problems Follow-Up Visit: Follow-up with Dr. Rainey's office 2-3 weeks after your day of surgery. We will remove your she and answer any questions. If you have any additional questions or concerns, Dr Rainey is usually in the office at the same time and will be available An appointment was probably scheduled when you signed-up for surgery in the office. If you have any questions call More detailed instructions as well as Frequently Asked Questions were provided in a folder by our office when you signed-up for surgery. Please review these instructions when you get home. If you have any further questions or concerns, please feel free to call the office at [phone] Pending Studies at Discharge: No Stand-Alone Forms: My [facility] [employer], Smoking Cessation Medications and DC Order Prescriptions: Continued cefadroxil 500 mg capsule 500 mg PO BID 10 Days Qty: 20 0RF oxycodone 5 mg tablet 5 mg PO Q6 PRN (Reason: pain) Qty: 30 0RF atorvastatin 40 mg Tablet 40 mg PO HS glimepiride 2 mg Tablet 2 mg PO QAM amlodipine 10 mg Tablet 10 mg PO QAM lisinopril 40 mg Tablet 40 mg PO QAM cholecalciferol (vitamin D3) [Vitamin D3] 125 mcg (5,000 unit) Tablet 125 mcg PO QAM cyclobenzaprine 10 mg Tablet 10 - 20 mg PO UD Rx Instructions: 10mg QAM and 20mg HS furosemide 40 mg Tablet 40 mg PO QAM doxycycline monohydrate 100 mg Tablet 100 mg PO QAM metoprolol succinate 25 mg Tablet Extended Release 24 Hr 25 mg PO QAM pregabalin 100 mg Capsule 100 - 200 mg PO UD Rx Instructions: 100mg QAM and 200mg HS tramadol 100 mg Tablet 100 mg PO UD PRN (Reason: Pain) Admission Data Admit Date/Time: 06/01/24 13:16 Attending Provider: Zurdo Rainey Admit Provider: Zurdo Rainey Primary Care Provider: Barry Taylor Other Interventions: Discharge Summary Assessment (RN) Last Done: 06/02/24 10:23
== END 2024-06-02 11:05 | disposition home health service (06) ==
LOC: ASU 07:52 → 3W 07:52